=== PATIENT | female | born 1980 | race Asian ===

== ENCOUNTER 2017-11-26 12:42 | Emergency (ER) | payer OTHER ==
[~2017-11-26] VITALS: Ht 170.2 cm; Wt 107.0 kg
[2017-11-26 13:01] LABS: PLATELET COUNT 438 K/uL (152-353)
[2017-11-26 14:55] VITALS: BP 120/78; TEMP 98
== END 2017-11-26 14:55 | disposition home or self-care (01) ==
LOC: ED 12:42
DX: M48.00 Spinal stenosis, site unspecified (principal); M54.42 Lumbago with sciatica, left side; I10 Essential (primary) hypertension
CPT/HCPCS: 80053; 81000; 85027; 96372; 99283; J1200; J1885

== ENCOUNTER 2020-06-21 17:22 | Emergency (ER) | payer OTHER ==
[~2020-06-21] VITALS: Ht 170.2 cm; Wt 107.0 kg
[2020-06-21 19:37] VITALS: BP 123/84; TEMP 98.8
== END 2020-06-21 19:39 | disposition home or self-care (01) ==
LOC: ED 17:22
DX: M51.36 Other intervertebral disc degeneration, lumbar region (principal); M51.26 Other intervertebral disc displacement, lumbar region
CPT/HCPCS: 81000; 96372; 99283; J1885

== ENCOUNTER 2020-12-09 10:03 | Outpatient (CLI) | payer OTHER | END 2020-12-09 23:00 | disposition home or self-care (01) | LOC: LABW 10:03 → RAD 10:03 | PROVIDERS: ATTEND Family Medicine | DX: Z20.828 Contact with and (suspected) exposure to other viral communicable diseases (principal) | CPT/HCPCS: 36415; 82728; 85379; 86140 ==

== ENCOUNTER 2020-12-16 08:00 | Emergency (ER) | payer OTHER ==
[~2020-12-16] VITALS: Ht 170.2 cm; Wt 109.8 kg
[2020-12-16 08:00] VITALS: TEMP 98.4
[2020-12-16 08:31] LABS: PLATELET COUNT 234 K/uL (152-353)
[2020-12-16 08:41] LABS: POTASSIUM 3.2 mmol/L (3.6-5.2)
[2020-12-16 09:00] VITALS: BP 118/65
== END 2020-12-16 10:39 | disposition home or self-care (01) ==
LOC: ED 08:00
PROVIDERS: Family Medicine
DX: R06.09 Other forms of dyspnea (principal); U07.1 COVID-19
CPT/HCPCS: 36415; 80053; 83605; 85027; 96374; 96375; 99284; J2405; J2930

== ENCOUNTER 2020-12-21 19:08 | Inpatient (IN) | payer OTHER ==
[~2020-12-21] VITALS: Ht 170.2 cm; Wt 98.2 kg
[2020-12-21 19:08] VITALS: BP 118/78; TEMP 98.8
[2020-12-21 20:35] LABS: PLATELET COUNT 563 K/uL (152-353)
[2020-12-21 20:38] LABS: POTASSIUM 3.1 mmol/L (3.6-5.2)
[2020-12-22] VITALS (9 sets, daily range): BP systolic 92–125; BP diastolic 52–77; TEMP 97.7–98.5; Ht 170.2 cm; Wt 98.2 kg
--- NOTE | 2020-12-22 03:10 | NUR ---
12/21/20 @ 7844 Pt admitted to room 1106 with Dx: Covid Pneumonia, Hypoxia, and pneumomediastinum. Pt in stable condition at this time. Pt on high flow O2 maintained at 100% at this time. Pt recieved Rocephin 1gm while in ER with no adverse reaction noted. Pt has 20g to LFA SL. Was reported by ER nurse pt came in VTach. Pt states she gets anxious at times. Morphine 4mg IV given as ordered for c/o generalized pain with relief noted. Pt resting with eyes closed at this time. Pt was oriented to room and call system. Call light in easy reach.
--- NOTE | 2020-12-22 15:09 | NUR ---
new iv site obtained due to pain and swelling at previous site. new site is a 20 ga top of left forearm. pt tolerated it well.
[2020-12-23 03:35] VITALS: BP 104/58; TEMP 97.9
[2020-12-23 04:48] LABS: PLATELET COUNT 473 K/uL (152-353)
[2020-12-23 06:09] LABS: POTASSIUM 3.8 mmol/L (3.6-5.2)
[2020-12-23 08:00] VITALS: BP 114/67; TEMP 98.3
--- NOTE | 2020-12-23 08:10 | NUR ---
DR SIMONS CALLED FOR PT TO BE WEANED. ADJUSTED HIGHFLOW TO 35 FLOW AND O2 TO 35% PT MAINTAINED SPO2 OF 91%. NO WORK OF BREATHING AT THIS TIME. HR 54 TOLERATED WELL
[2020-12-23 12:00] VITALS: BP 114/55; TEMP 98.4
[2020-12-23 16:00] VITALS: BP 101/60; TEMP 98.2
[2020-12-23 20:26] VITALS: BP 99/50; TEMP 98.5
[2020-12-24 00:04] VITALS: BP 129/66; TEMP 97.4
--- NOTE | 2020-12-24 01:09 | NUR ---
PT ALERT,ORIENTED X4. DENIES SHORTNESS OF BREATH OR ANY DISCOMFORT.
--- NOTE | 2020-12-24 01:48 | NUR ---
PT RESTING QUIETLY. NO RESPIRATORY DISTRESS NOTED.
[2020-12-24 04:05] VITALS: BP 97/40; TEMP 96.4
[2020-12-24 05:33] LABS: PLATELET COUNT 444 K/uL (152-353)
[2020-12-24 06:01] LABS: POTASSIUM 3.6 mmol/L (3.6-5.2)
[2020-12-24 08:00] VITALS: BP 104/53; TEMP 98.1
--- NOTE | 2020-12-24 09:00 | NUR ---
PATIENT RESTING IN HIGH FLYNN'S ON NRB. NAD NOTED. PATIENT HAS NO COMPLAINTS AT THIS TIME. 20 G PERIPHERAL IV TO LEFT FOREARM- SL. DR. SIMONS REQUESTED TO CHANGE PATIENT BACK TO HIGH FLOW. PATIENT PLACED ON 40L AT 50%. PATIENT TOLERATING WELL. PATIENT SATTING AT 96%. WILL CONTINUE TO MONITOR.
[2020-12-24 12:00] VITALS: BP 131/60; TEMP 97.9
[2020-12-24 16:00] VITALS: BP 118/69; TEMP 98
[2020-12-24 19:53] VITALS: BP 132/70; TEMP 97.8
--- NOTE | 2020-12-24 20:31 | NUR ---
DECREASED FIO2 TO 45% SPO2 95-96%, HR 52. NURSE MELY MCDANIELS NOTIFIED.
--- NOTE | 2020-12-24 22:23 | NUR ---
2100: PT STATED HER PAIN IS IN HER BACK. TRAMADOL 50 MG, AND FLEXERIL 10 MG GIVEN PO.
[2020-12-25 00:10] VITALS: BP 119/61; TEMP 98.3
[2020-12-25 04:04] VITALS: BP 118/67; TEMP 98.5
--- NOTE | 2020-12-25 05:13 | NUR ---
PT HAS RESTED WELL THIS SHIFT. HIGH FLOW OXYGEN IN USE. NO RESPIRATORY DISTRESS NOTED.
[2020-12-25 05:15] LABS: POTASSIUM 3.6 mmol/L (3.6-5.2)
[2020-12-25 05:23] LABS: PLATELET COUNT 424 K/uL (152-353)
[2020-12-25 08:00] VITALS: BP 135/71; TEMP 98.3
--- NOTE | 2020-12-25 10:19 | NUR ---
PT SITTING UP IN BED, AWAKE AND ALERT. DENIES ANY PAIN/DISCOMFORT. AM MEDS ADMINISTERED AND TOLERATED WELL WITH NO DIFFICULTY SWALLOWING MEDS. IV SITE TO LFA INTACT WITH NO SWELLING OR REDNESS NOTED TO SITE. PT ED ON PROPER USE OF INHALERS AT BEDSIDE BY DEMONSTRATION.
[2020-12-25 12:00] VITALS: BP 127/69; TEMP 98.1
[2020-12-25 16:00] VITALS: BP 119/72; TEMP 97.7
--- NOTE | 2020-12-25 16:01 | NUR ---
PT IN BED AWAKE AND WATCHING TELEVISION. HIGH FLOW O2 INTACT WITH 45% AT 40L. NO DISTRESS NOTED. PT DENIES ANY PAIN/DISCOMFORT. ORDER TO REQUEST OT AND PT EVAL/TREATMENT OBTAINED TODAY. IV ANTIBIOTICS ADMINISTERED ORDERED AND PT TOLERATED WELL.
[2020-12-25 20:00] VITALS: BP 91/56; TEMP 97.8
[2020-12-26 00:04] VITALS: BP 105/44; TEMP 100.3
[2020-12-26 04:00] VITALS: BP 105/49; TEMP 99.1
[2020-12-26 05:13] LABS: PLATELET COUNT 378 K/uL (152-353)
[2020-12-26 08:00] VITALS: BP 116/69; TEMP 97.8
--- NOTE | 2020-12-26 08:06 | NUR ---
POST ABG, RT INCREASED HFN FROM 55LPM AT 70% TO 60LPM AT 80%. SPO2 NOW AT 90-91%. CHANGED MADE AND COPY OF ABG GIVEN TO VICKEY AT NURSING STATION. VICKEY TO CALL DR SIMONS WITH RESULTS AND CHANGES MADE.
--- NOTE | 2020-12-26 11:45 | NUR ---
PT HAS BEEN GIVEN INSTRUCTIONS BY HCP TO BE UP IN CHAIR QHR TODAY. PTS STATUS NOT IMPROVING. PT HAS TO BE ENCOURAGED TO GET OUT OF BED. PT ON HIGH FLOW 60L AT 82%. SATS 90-91%. PTS IV SITE TO LFA LEAKING AND WAS D/C'D. PT HAS NEW IV SITE TO RIGHT WRIST, 20GA. NO SWELLING OR REDNESS NOTED AND FLUSHES WITH NO DIFFICULTY AND NO LEAKING NOTED. AM MEDS ADMINISTERED WITH NO DIFFICULTY SWALLOWING MEDS. NEW ORDERS WRITTEN BY HCP. PT ALERT AND AWAKE.
[2020-12-26 12:00] VITALS: BP 132/72; TEMP 97.8
--- NOTE | 2020-12-26 13:55 | NUR ---
PT UP IN CHAIR. ENCOURAGED PT TO COMB HAIR AND TO GIVE HERSELF A BEDBATH. SET UP BEDPAN WITH SOAP/WATER, TOWEL AND WASHCLOTH AND GOWN AT SIDE. LINEN CHANGED. PT TALKING TO FAMILY ON CELL PHONE. O2 SATS DECREASE 88-89% WITH MOVEMENT AND INCREASES WITH REST. DENIES ANY PAIN/DISCOMFORT. PT COMPLIANT WITH MEDS AND TREATMENT. DENIES ANY PAIN/DISCOMFORT.
[2020-12-26 16:00] VITALS: BP 113/80; TEMP 97.4
--- NOTE | 2020-12-26 18:08 | NUR ---
PT SITTING UP IN CHAIR. PT UP IN CHAIR FOR MOST OF THE DAY. PTS SATS DROP TO 80s WHEN MOVING FROM BED TO CHAIR (VICE VERSA). AFTER RESTING FOR 5-10 MINUTES SATS INCREASE TO 90-91%. PT STARTED ON NEW ABX R/T ELEVATED WBC. IV SITE TO RIGHT WRIST INTACT WITH NO REDNESS OR SWELLING NOTED. PT ON CELL PHONE TALKING TO FAMILY. PT REPORTS FEELING "GIVE OUT" WHEN UP WALKING FROM BED TO CHAIR.
[2020-12-26 20:11] VITALS: BP 102/46; TEMP 98.3
[2020-12-27 00:05] VITALS: BP 103/44; TEMP 100.1
[2020-12-27 04:00] VITALS: BP 96/47; TEMP 99.8
[2020-12-27 04:36] LABS: PLATELET COUNT 249 K/uL (152-353)
[2020-12-27 04:54] LABS: POTASSIUM 3.1 mmol/L (3.6-5.2)
--- NOTE | 2020-12-27 06:30 | NUR ---
PATIENT TAKEN BALLOONS AND CON[employer]UTION [employer]Y BLOWER, INSTRUCTED TO BLOW BALLOON UP EVERY COMMERCIAL DURING THE DAY AND BLOW ON CON[employer] BLOWER 10x EVERY COMMERCIAL. PATIENT PRONED, TOLD TO REMAIN PRONE FOR AT LEAST 20 MINUTES, WHEN RT RETURNED 5 MINUTES LATER PATIENT WAS ON BACK WATHCING TV. RT ENCOURAGED PATIENT TO PRONE AT LEAST 3 TIMES PER DAY X 30 MINUTES, PATIENT SHOWS VERY LITTLE EFFORT
[2020-12-27 08:00] VITALS: BP 126/81; TEMP 98
--- NOTE | 2020-12-27 08:31 | NUR ---
DECREASED FIO2 TO 70%. SPO2 BETWEEN 88-90%
[2020-12-27 12:00] VITALS: BP 123/86; TEMP 98.7
--- NOTE | 2020-12-27 12:27 | NUR ---
PT AWAKE AND ALERT. PT BECAME ANXIOUS DURING THE NIGHT AND BECAME INCONTINENT, NOW WEARING A DEPENDS. PT ON HIGH-FLOW AT 60L 80% AND PER HCP(RONAK), WEAN PT TO 50L AT 60%. PT UNABLE TO TOLERATE LEVEL AND NOW ON 60L AT 70% AND SATS 90-91%, NO RESP DISTRESS NOTED. PTS IV SITE TO RIGHT WRIST INTACT AND NO REDNESS OR SWELLING NOTED. PER HCP(RONAK) GIVE: 500ML OF NS BOLUS X1, ENSURE PLUS 0NE PO TID, RE-ORDER BMP FOR 1800 AND CALL HCP WITH RESULTS. ELECTROLYTE PROTOCOL COMPLETED, CALCIUM CORRECTED-9.2,NO REPLACEMENT NEEDED, ONLY KCL REPLACEMENT. PT ASSISTED UP TO CHAIR AND TOLERATED WELL. BED LINEN CHANGED AND PT CLEANED.
--- NOTE | 2020-12-27 13:05 | NUR ---
RT TO PT ROOM TO TRY AND WEAN HFNC. VICKEY AT PT BEDSIDE TO MOVE TO CHAIR. PT SAT UP ON THE SIDE OF THE BED AND SPO2 DROPPED TO THE 60S HR INCREASED TO 130/140S. AFTER A FEW MINUTES PT STILL HAD NOT RECOVERED. SPO2 BETWEEN 70-75%. RT INCREASED FIO2 TO 85%. SPO2 NOW AT 85%. PT STATES SHE SI A LITTLE BETTER AFTER 10MINUTES. WILL CONTINUE TO MONITOR AND INCREASE OR WEAN PT TOLERATES.
--- NOTE | 2020-12-27 14:06 | NUR ---
PT C/O NAUSEA AFTER ATTEMPTING TO EAT HER LUNCH. PT DID NOT GET UP IN CHAIR AT LUNCH BECAUSE SHE WAS FEELING NAUSEATED. PT SAT UP ON THE SIDE OF BED AND SATS DROPPED TO 70s, RESPIRATORY INCREASED HI-FLOW BACK TO 60L AT 80%. PT UNABLE TO WEAN DOWN FROM CURRENT SETTINGS BECAUSE OF DROP IN SATS. NAD NOTED. DENIES ANY PAIN/DISCOMFORT.
--- NOTE | 2020-12-27 15:33 | NUR ---
EKG COMPLETED AND GIVEN TO [facility]. NURSE TO FAX TO DR SIMONS.
--- NOTE | 2020-12-27 15:49 | NUR ---
PTS HR INCREASED TO 150s, PTS NORMALLY BRADYCARDIA. CONSULTED WITH HCP AND EKG ORDERED AND EVALUATED BY HCP. NO SHORTNESS OF BREATH OR RESPIRATORY DISTRESS OBSERVED. PT UP SITTING IN THE CHAIR RESTING QUIETLY. DENIES ANY PAIN/DISCOMFORT.
[2020-12-27 16:00] VITALS: BP 110/67; TEMP 98.2
--- NOTE | 2020-12-27 17:29 | NUR ---
PT UP IN CHAIR MOST OF THE DAY. PT HAD 3 ENSURE PLUS SUBSTITUTED FOR MEALS AND 100% COMPLIANT. PTS CQ=036c WITH NO DISTRESS NOTED. HI-FLOW O2 INTACT, 60L AT 80%. RESPIRATORY COULD NOT WEAN PT R/T IMMEDIATE DROP IN SATS, SATS=78-80%. PT SATS NOW AT 92% WITH CURRENT HI-FLOW SETTINGS. PT INCREASED ALERTNESS. PT SITTING UP COMBING HER HAIR. PT ED ON BEING MORE ACTIVE BY GETTING OUT OF BED AND SITTING UP IN CHAIR AND GOING TO BEDSIDE COMMODE AND USING DEPENDS. NO C/O PAIN/DISCOMFORT VOICED.
[2020-12-27 18:06] LABS: POTASSIUM 3.2 mmol/L (3.6-5.2)
[2020-12-27 20:06] VITALS: BP 99/67; TEMP 98.5
[2020-12-28 00:08] VITALS: BP 90/49; TEMP 98.9
[2020-12-28 04:00] VITALS: BP 92/48; TEMP 98.9
[2020-12-28 04:27] LABS: PLATELET COUNT 200 K/uL (152-353)
[2020-12-28 04:36] LABS: POTASSIUM 3.5 mmol/L (3.6-5.2)
--- NOTE | 2020-12-28 07:20 | NUR ---
Dr. SIMONS CALLED WITH NEW ORDERS. Pt. RESTING IN BED WITH HIGH FLOW O2. Pt. RESTLESS AND MOVING AROUND IN BED.
[2020-12-28 08:00] VITALS: BP 113/76; TEMP 98.7
--- NOTE | 2020-12-28 08:30 | NUR ---
NEW ORDERS RECEIVED FROM DR. SIMONS AND CARRIED OUT. ATIVAN 1 MG GIVEN IV AND MORPHINE 2MG GIVEN IV FOR ANXIETY.
--- NOTE | 2020-12-28 09:47 | NUR ---
0940 INCREASED PT TO 100 FIO2 DUE TO LOW SPO2 . PT IS LABORED AND TACHY. [facility]
--- NOTE | 2020-12-28 09:58 | NUR ---
NEW ORDERS RECEIVED NEW ORDERS FROM Dr. SIMONS. Pt. LESS RESTLESS. RESP RAPID AND LABORED.
--- NOTE | 2020-12-28 11:20 | NUR ---
Pt. RETURNED TO ROOM FROM CT.
--- NOTE | 2020-12-28 11:41 | NUR ---
C/O NAUSEA. ZOFRAN 4MG GIVEN IV.
[2020-12-28 12:00] VITALS: BP 110/54; TEMP 98.1
--- NOTE | 2020-12-28 12:06 | NUR ---
NOTIFIED Dr. SIMONS OF CT RESULTS. NEW ORDERS RECEIVED. NOTIFIED TARIK OLIVAS Dr. WANTS HER TO TRY TO FIND A ICU BED TO TRANFER.
--- NOTE | 2020-12-28 12:30 | NUR ---
NAUSEA RELEIVED. Pt. HAS LABORED RESP AND SHALLOW. ENCOUGHED TO TAKE DEEP BREATHS.
--- NOTE | 2020-12-28 13:00 | NUR ---
UPDATE GIVEN TO Dr. SIMONS HEART RATE 144 AND O2 SAT 84.
--- NOTE | 2020-12-28 13:14 | NUR ---
NEW ORDERS RECEIVED FROM Dr. SIMONS.
--- NOTE | 2020-12-28 14:24 | NUR ---
MORPHINE 2MG GIVEN IV. Pt. VERY ANXIOUS IF LEFT ALONG. STAYING AT BEDSIDE WITH Pt. STARTS TO CALLED OUT IF LEFT ALONE. Dr. SIMONS HER TO VISIT.
--- NOTE | 2020-12-28 15:55 | NUR ---
I have called the below facilities for transfer to an ICU with cardiology: [facility] [phone] on list will update q 8 hrs [facility] [phone] ext [phone] [facility] [phone] no beds no list [facility] [phone] all on diversion [place] [phone] [facility] [phone] no beds no list [facility] ([place] facilities) [phone] no beds, but faxed [phone] to be put on list [facility] [phone] (11 [place] and [place] facilities) [facility] & all others at capacity for weeks, no list, check back [facility] [phone] ext [phone] (8 facilities) at cap for out of state transfers, check q 24 hrs [place], [place] [phone] (3 facilities), i faxed [phone] declined transfer, at cap [facility] [phone] icu, step down, & med surg on closure at this time [facility] [phone] all icu on diversion [facility] [phone] on diversion x 1 mo, no list [facility], [place] [phone] on diversion, no out of state transfers [facility] [phone] on wait list [facility] [place] [phone] no icu beds, on list [facility] [phone] and faxed [phone] they are closed for transfer but put on list [facility] [phone] on total diversion, no list [facility] [phone]/ fx [phone] no beds, no list [facility] [phone]/ fx [phone] at cap no list. [facility] [phone] x [phone] (8 facilities
[2020-12-28 16:00] VITALS: BP 110/67; TEMP 97.1
--- NOTE | 2020-12-28 17:07 | NUR ---
Pt. TO CT FOR CT OF CHEST.
--- NOTE | 2020-12-28 17:29 | NUR ---
AT BEDSIDE WITH Pt. Pt. FALLS ASLEEP AND MOANING WHILE SLEEP.
--- NOTE | 2020-12-28 18:09 | NUR ---
JOSSE VILLA RT RAN OUT OF ROOM TO GET AMBU BAG. PER JOSSE VILLA Pt. WAS TALKING AND Pt. MOVED FOR SHE COULD DRAW ABG. Pt. STOPPED BREATHING. 1809 Pt. NOT BREATHING BUT HAS A PULSE. JOSSE ALLEN STARTED BAGGING Pt. WITH AMBU BAG. 1811 Dr. SIMONS NOTIFIED Pt. NOT BREATHING. NOTIFY Dr. ROSE UNTIL SHE CAN ARRIVE. 1813 Dr. ROSE NOTIFIED. COMPRESSIONS STARTED BY NELLY PARKER RN 1814 CODE CALLED BY ELAINE ESCOBEDO. Dr. ROSE ARRIVED. 181 FLUID STARTED. 181 EPINEPHRINE 1MG GIVE IV. ELECTRODUES APPLIED. NO PULSE PALPATED. 1821 LAB UNABLE TO DRAW LABS. 1822 EPINEPHRINE 1MG GIVEN IV. LMA IN BY LYN WATSON RT. SODIUM BICARB 8.4% GIVEN IV. 1825 PULSE CHECKED AND NO PULSE. INITIATED SHOCK. CONTINUED CPR. LAB ATTEMPTED TO DRAW BLOOD. UNABLE TO DRAW. 1826 EPINEPHRINE 1MG GIVEN IV. 1829 EPINEPHRINE 1MG GIVEN IV. SHOCK INITIATED. 1830 PULSE CHECK. NO PULSE. [address] SIMONS ARRIVED. 1832 EPINEPHRINE 1MG GIVEN IV. PULSE CHECKED. PULSE FELT. 1833 ATROPINE 1MG GIVEN IV. 1835 EPINEPHRINE 1MG GIVEN IV. 10% CALCIUM GIVEN. 1835 DEXTROSE 50% GIVEN IV. 1838 SODIUM BICARB 8.4% GIVEN IV. 1839 EPINEPHRINE 1MG GIVE IV. 1842 EPINEPHRINE 1MG GIVEN IV 1843 PULSE CHECKED. NO PULSE. 1844 LIDOCAINE GIVEN IV. 1845 LARGE AMOUNT OF BRIGHT RED BLOOD COME FROM MOUTH. EPINEPHRINE 1MG GIVEN IV. 1848 EPINEPHRINE 1MG GIVEN IV. 1852 EPINEPHRINE 1MG GIVEN IV. 1853 CPR STOPPED FOR PULSE CHECK. CPR RESUMED. 1855 EPINEPHRINE 1MG GIVEN IV. 1856 NEW BAG OG NS HUNG. [address] ROSE. TIME OF 185. [address] SIMONS NOTIFIED FAMILY. 2000 NOTIFIED YON AT DATA. 2009 MILLHEIM NOTIFIED TO [employer]PER[employer] PATIENT. 2112 MILLHE[facility] HOME IS HERE. BODY RELEASED. 1833 ATROPINE 1MG GIVEN IV. 1
== END 2020-12-28 21:26 | disposition expired | DRG 177 ==
LOC: ED 19:08 → MED/SURG 21:19
PROVIDERS: Emergency Medicine Emergency Medical Services; ADMIT Family Medicine; ATTEND Family Medicine
DX: U07.1 COVID-19 (principal); J12.82 Pneumonia due to coronavirus disease 2019; K92.2 Gastrointestinal hemorrhage, unspecified; N17.8 Other acute kidney failure; J98.2 Interstitial emphysema; E87.6 Hypokalemia; I10 Essential (primary) hypertension; M54.89 Other dorsalgia; D64.89 Other specified anemias; E88.09 Other disorders of plasma-protein metabolism, not elsewhere classified; I46.9 Cardiac arrest, cause unspecified; K76.1 Chronic passive congestion of liver; R06.09 Other forms of dyspnea; F41.8 Other specified anxiety disorders; R51.9 Headache, unspecified; E66.01 Morbid (severe) obesity due to excess calories; Z68.33 Body mass index [BMI] 33.0-33.9, adult
CPT/HCPCS: 31500; 36415; 36600; 80048; 80053; 81000; 82728; 82805; 83540; 83550; 83605; 83735; 83880; 84100; 84484; 85007; 85027; 85379; 86140; 87040; 87070; 87086; 87088; 87205; 92950; 93005; 94664; 94667; 94668; 94760; 96360; 96365; 99284; J0171; J0456; J0461; J0610; J0696; J1100; J1650; J1885; J1956; J2060; J2270; J2405; J3411; J3475; J3490; J7060; Q9963